=== PATIENT | male | born 1995 | race Asian ===

== ENCOUNTER 2021-02-27 11:01 | Emergency (ER) | payer OTHER ==
[~2021-02-27] VITALS: Ht 177.8 cm; Wt 81.5 kg
[2021-02-27] MEDS ORDERED: ACETAMINOPHEN 500 MG TAB PO ONE (13:25)
[2021-02-27 13:50] LABS: BASO % 0.3 % (0.0-1.0); EOS # 0.5 10^3/uL (0.0-0.5); EOS % 5.7 % (0.0-3.0); HEMATOCRIT 45.9 % (42.0-52.0); LYMPH # 2.5 10^3/uL (1.5-5.0); LYMPH % 26.3 % (24.0-44.0); MEAN CORPUSCULAR HEMOGLOBIN 27.8 pg (27.0-33.0); MEAN CORPUSCULAR HGB CONC 32.7 g/dl (32.0-36.5); MONO # 0.7 10^3/uL (0.0-0.8); MONO % 6.9 % (2.0-8.0); NEUTROPHILS # 5.7 10^3/uL (1.5-8.5); NEUTROPHILS % 60.6 % (36.0-66.0); PLATELET COUNT, AUTOMATED 258 10^3/uL (150-450); WHITE BLOOD COUNT 9.4 10^3/uL (4.0-10.0)
[2021-02-27 14:05] LABS: RSV AMPLIFICATION NEGATIVE (NEGATIVE)
[2021-02-27 14:17] LABS: ALBUMIN 4.7 GM/DL (3.2-5.2); ALT/SGPT 25 U/L (12-78); BILIRUBIN,TOTAL 0.4 MG/DL (0.2-1.0); BLOOD UREA NITROGEN 14 MG/DL (7-18); CALCIUM LEVEL 10.1 MG/DL (8.5-10.1); CARBON DIOXIDE LEVEL 31 MEQ/L (21-32); CHLORIDE LEVEL 105 MEQ/L (98-107); CPK CREATINE PHOSPHOKINASE 256 U/L (39-308); CREATININE FOR GFR 0.93 MG/DL (0.70-1.30); GLOMERULAR FILTRATION RATE > 60.0 (>60); GLUCOSE, FASTING 91 MG/DL (70-100); LDH LACTATE DEHYDROGENASE 162 U/L (87-241); MB/CK RELATIVE INDEX 0.78 (< OR =4); POTASSIUM SERUM 4.6 MEQ/L (3.5-5.1); SODIUM LEVEL 138 MEQ/L (136-145); TROPONIN I < 0.02 NG/ML (< 0.10)
--- NOTE | 2021-02-27 14:35 | REP ---
INDICATION: SOB COMPARISON: None. TECHNIQUE: PA and lateral. FINDINGS: The mediastinum and cardiac silhouette are normal. The lung chen are clear and without acute consolidation, effusion, or pneumothorax. The skeletal structures are intact and normal. IMPRESSION: No acute cardiopulmonary process. <Electronically signed by Phil Menendez > 02/27/21 [id number]
[2021-02-27] MEDS ORDERED: PROAAER10 INH (14:52)
[2021-02-27 15:02] VITALS: BP 128/80
--- NOTE | 2021-02-28 17:34 | ECGEPIP ---
[facility] - ED Test Date: 2021-02-27 Pat Name: MD LANE Department: Room: - Gender: Male [employer] Rep[employer]r: BASSAM : 1995 Requested By: ALYSON Brooks PA-C Order Number: [id number] Reading MD: Josette Almaraz Measurements Intervals Ellis Rate: 58 P: 45 NH: 152 QRS: 23 QRSD: 84 T: 9 QT: 396 QTc: 388 Interpretive Statements Sinus bradycardia No prior Electronically Signed on 02-28-2021 17:34:12 EDT by Josette Almaraz
== END 2021-02-27 15:04 | disposition home or self-care (01) ==
LOC: M ED 11:01
DX: J06.9 Acute upper respiratory infection, unspecified (principal); B34.8 Other viral infections of unspecified site; Z20.822 Contact with and (suspected) exposure to COVID-19